=== PATIENT | female | born 1965 | race Native Hawaiian/Other Pacific Islander ===

== ENCOUNTER 2017-04-05 14:19 | Emergency (ER) | payer OTHER ==
[~2017-04-05] VITALS: Ht 175.3 cm; Wt 104.3 kg
[2017-04-05 15:20] LABS: PLATELET COUNT 245 K/uL (152-353)
[2017-04-05 15:31] LABS: POTASSIUM 3.9 mmol/L (3.6-5.2)
[2017-04-05 16:22] VITALS: BP 125/72; TEMP 98.1
== END 2017-04-05 16:30 | disposition home or self-care (01) ==
LOC: ED 14:19
PROVIDERS: Emergency Medicine
DX: N20.1 Calculus of ureter (principal); N23 Unspecified renal colic; R10.84 Generalized abdominal pain
CPT/HCPCS: 80053; 85027; 96360; 96374; 96375; 96376; 99284; J1885; J2175; J2405

== ENCOUNTER 2017-09-28 18:14 | Observation (INO) | payer OTHER ==
[~2017-09-28] VITALS: Ht 175.3 cm; Wt 107.3 kg
[2017-09-28 18:24] VITALS: BP 152/105; TEMP 98.5
[2017-09-28 19:14] LABS: PLATELET COUNT 275 K/uL (152-353)
[2017-09-28 19:30] VITALS: BP 155/89
[2017-09-28 19:43] LABS: POTASSIUM 3.6 mmol/L (3.6-5.2)
[2017-09-28 20:00] VITALS: BP 159/95; TEMP 98.7
[2017-09-29] VITALS: BP 143/70; TEMP 97.8
[2017-09-29 03:54] VITALS: BP 126/53; TEMP 97.7; Ht 175.3 cm; Wt 107.3 kg
[2017-09-29 03:59] VITALS: BP 127/69; TEMP 97.9
[2017-09-29 08:00] VITALS: BP 140/77; TEMP 98.6
[2017-09-29 08:24] LABS: PLATELET COUNT 248 K/uL (152-353)
[2017-09-29 08:35] LABS: POTASSIUM 4.1 mmol/L (3.6-5.2)
[2017-09-29] MEDS ORDERED: CIPR500T PO (11:29)
[2017-09-29] MEDS ORDERED: KETO10TA34 PO (11:29)
[2017-09-29] MEDS ORDERED: TERA2CAP3 PO (11:29)
[2017-09-29 12:00] VITALS: BP 134/69; TEMP 98
== END 2017-09-29 13:15 | disposition home or self-care (01) ==
LOC: ED 18:14 → MED/SURG 20:00
PROVIDERS: Family Medicine
DX: N13.2 Hydronephrosis with renal and ureteral calculous obstruction (principal); E11.9 Type 2 diabetes mellitus without complications; R11.2 Nausea with vomiting, unspecified
CPT/HCPCS: 36415; 80053; 81000; 85027; 96374; 96375; 96376; 99220; 99284; G0378; J0696; J1650; J1885; J2405; J2550; J3490

== ENCOUNTER 2017-11-22 09:38 | Outpatient (CLI) | payer OTHER ==
[~2017-11-22 09:38] MED LIST: CIPR500T PO; KETO10TA34 PO; TERA2CAP3 PO
[2017-11-22 10:46] LABS: PLATELET COUNT 283 K/uL (152-353)
== END 2017-11-22 19:55 | disposition home or self-care (01) ==
LOC: RAD 09:38
PROVIDERS: Nurse Practitioner
DX: R11.2 Nausea with vomiting, unspecified (principal); R05 Cough; R06.02 Shortness of breath; R53.83 Other fatigue; R50.9 Fever, unspecified
CPT/HCPCS: 36415; 80053; 85027; 87070; 87077; 87185; 87186; 87205; 87497

== ENCOUNTER 2018-10-21 12:00 | Outpatient (CLI) | payer OTHER | END 2018-10-21 12:14 | disposition short-term general hospital (02) | LOC: AMB 12:00 | DX: M25.531 Pain in right wrist (principal); M25.561 Pain in right knee; M25.551 Pain in right hip; W18.39XA Other fall on same level, initial encounter; Y92.018 Other place in single-family (private) house as the place of occurrence of the external cause | CPT/HCPCS: A0425; A0427 ==

== ENCOUNTER 2018-10-21 12:16 | Emergency (ER) | payer OTHER ==
[~2018-10-21] VITALS: Ht 175.3 cm; Wt 107.0 kg
[2018-10-21 12:24] VITALS: TEMP 97.5
[2018-10-21 13:24] VITALS: BP 136/78
== END 2018-10-21 13:25 | disposition home or self-care (01) ==
LOC: ED 12:16
DX: R52 Pain, unspecified (principal); W18.39XA Other fall on same level, initial encounter; Y93.9 Activity, unspecified; Y92.89 Other specified places as the place of occurrence of the external cause
CPT/HCPCS: 99283

== ENCOUNTER 2019-02-22 07:50 | Outpatient (CLI) | payer OTHER | END 2019-02-22 23:26 | disposition home or self-care (01) | LOC: LABW 07:50 | DX: R19.7 Diarrhea, unspecified (principal) | CPT/HCPCS: 82272; 83630; 87015; 87045; 87324; 87328; 87329; 87449; 87899 ==

== ENCOUNTER 2019-07-16 02:30 | Emergency (ER) | payer OTHER ==
[~2019-07-16] VITALS: Ht 175.3 cm; Wt 107.0 kg
[2019-07-16 03:45] VITALS: BP 133/63; TEMP 98.1
== END 2019-07-16 03:45 | disposition home or self-care (01) ==
LOC: ED 02:35
DX: M16.11 Unilateral primary osteoarthritis, right hip (principal); Z98.890 Other specified postprocedural states; W18.39XA Other fall on same level, initial encounter; Y92.89 Other specified places as the place of occurrence of the external cause
CPT/HCPCS: 96374; 99284

== ENCOUNTER 2019-09-16 09:13 | Emergency (ER) | payer OTHER ==
[~2019-09-16] VITALS: Ht 175.3 cm; Wt 107.0 kg
[2019-09-16 09:45] LABS: POTASSIUM 3.3 mmol/L (3.6-5.2); SODIUM 134 mmol/L (136-145)
[2019-09-16 09:48] LABS: PLATELET COUNT 307 K/uL (152-353)
[2019-09-16 13:15] VITALS: BP 149/89; TEMP 97.1
== END 2019-09-16 13:19 | disposition short-term general hospital (02) ==
LOC: ED 09:13
DX: R10.0 Acute abdomen (principal); K25.5 Chronic or unspecified gastric ulcer with perforation
CPT/HCPCS: 36415; 80053; 81000; 82550; 84484; 85027; 93005; 96360; 96361; 96365; 96375; 96376; 99284; J2270; J2405; J2543; Q9963

== ENCOUNTER 2020-01-23 09:05 | Outpatient (CLI) | payer OTHER | END 2020-01-23 20:24 | disposition home or self-care (01) | LOC: RESP 09:05 → MRI 10:00 → RESP 20:24 | DX: M54.16 Radiculopathy, lumbar region (principal) ==

== ENCOUNTER 2020-04-24 12:46 | Outpatient (CLI) | payer OTHER | END 2020-04-24 19:57 | disposition home or self-care (01) | LOC: MRI 12:46 | PROVIDERS: ATTEND Specialist | DX: M54.17 Radiculopathy, lumbosacral region (principal) ==

== ENCOUNTER 2020-05-31 08:22 | Outpatient (CLI) | payer OTHER | END 2020-05-31 22:56 | disposition home or self-care (01) | LOC: MRI 08:22 | PROVIDERS: ATTEND Specialist | DX: R20.2 Paresthesia of skin (principal); R20.0 Anesthesia of skin | CPT/HCPCS: 36415; 82565; 84520; A9576 ==

== ENCOUNTER 2020-06-03 11:06 | Emergency (ER) | payer OTHER ==
[~2020-06-03] VITALS: Ht 175.3 cm; Wt 92.1 kg
[2020-06-03 11:06] VITALS: TEMP 98.1
[2020-06-03 14:33] VITALS: BP 150/79
== END 2020-06-03 14:40 | disposition home or self-care (01) ==
LOC: ED 11:06
PROC: 2W3CX1Z Immobilization of Right Lower Arm using Splint (ICD-10-PCS; principal; 2020-06-03)
PROC: 0PSHXZZ Reposition Right Radius, External Approach (ICD-10-PCS; 2020-06-03)
DX: S52.531A Colles' fracture of right radius, initial encounter for closed fracture (principal); W18.39XA Other fall on same level, initial encounter; Y92.89 Other specified places as the place of occurrence of the external cause
CPT/HCPCS: 96360; 96375; 99284; J2270; J3490

== ENCOUNTER 2020-06-17 15:32 | Outpatient (CLI) | payer OTHER | END 2020-06-17 19:36 | disposition home or self-care (01) | LOC: RAD 15:32 | PROVIDERS: ATTEND Physician Assistant | DX: M25.531 Pain in right wrist (principal) ==

== ENCOUNTER 2020-06-26 10:19 | Outpatient (CLI) | payer OTHER | END 2020-06-26 19:35 | disposition home or self-care (01) | LOC: LABW 10:19 | PROVIDERS: ATTEND Specialist | DX: G45.9 Transient cerebral ischemic attack, unspecified (principal) | CPT/HCPCS: 36415; 83090; 85210; 85220; 85240; 85300; 85303; 85306; 85652; 86038; 86147 ==

== ENCOUNTER 2020-08-09 08:32 | Outpatient (CLI) | payer OTHER | END 2020-08-09 19:49 | disposition home or self-care (01) | LOC: RESP 08:32 → MRI 10:00 → RESP 19:49 | PROVIDERS: ATTEND Specialist | DX: G45.9 Transient cerebral ischemic attack, unspecified (principal) ==

== ENCOUNTER 2020-08-12 13:38 | Outpatient (CLI) | payer OTHER | END 2020-08-12 20:52 | disposition home or self-care (01) | LOC: RAD 13:38 | PROVIDERS: ATTEND Physician Assistant | DX: M54.2 Cervicalgia (principal); M25.531 Pain in right wrist ==

== ENCOUNTER 2020-09-09 06:57 | Outpatient (CLI) | payer OTHER | END 2020-09-09 21:23 | disposition home or self-care (01) | LOC: RAD 06:57 | PROVIDERS: ATTEND Physician Assistant | DX: M25.531 Pain in right wrist (principal); M54.2 Cervicalgia; M25.511 Pain in right shoulder ==

== ENCOUNTER 2020-10-18 09:06 | Outpatient (CLI) | payer OTHER | END 2020-10-18 23:59 | disposition home or self-care (01) | LOC: MRI 09:06 | PROVIDERS: ATTEND Orthopaedic Surgery | DX: M25.511 Pain in right shoulder (principal) ==

== ENCOUNTER 2020-11-07 09:34 | Outpatient (CLI) | payer OTHER | END 2020-11-07 19:44 | disposition home or self-care (01) | LOC: MRI 09:34 | PROVIDERS: ATTEND Neurological Surgery | DX: M54.16 Radiculopathy, lumbar region (principal) ==

== ENCOUNTER 2021-02-12 07:47 | Emergency (ER) | payer OTHER ==
[~2021-02-12] VITALS: Ht 175.3 cm; Wt 96.2 kg
[2021-02-12 07:58] VITALS: TEMP 97.8
[2021-02-12 08:26] LABS: PLATELET COUNT 217 K/uL (152-353)
[2021-02-12 10:00] VITALS: BP 112/68
== END 2021-02-12 10:22 | disposition home or self-care (01) ==
LOC: ED 07:47
PROVIDERS: Emergency Medicine Emergency Medical Services
DX: N20.2 Calculus of kidney with calculus of ureter (principal); Z87.442 Personal history of urinary calculi
CPT/HCPCS: 36415; 80053; 81000; 85027; 96360; 96374; 96375; 99284; J1885; J2270; J2405

== ENCOUNTER 2021-05-27 08:55 | Outpatient (CLI) | payer OTHER | END 2021-05-27 18:57 | disposition home or self-care (01) | LOC: MRI 08:55 | PROVIDERS: ATTEND Neurological Surgery | DX: M54.16 Radiculopathy, lumbar region (principal) | CPT/HCPCS: 36415; 82565; 84520; A9576 ==

== ENCOUNTER 2021-07-14 13:48 | Outpatient (CLI) | payer OTHER | END 2021-07-14 20:12 | disposition home or self-care (01) | LOC: RAD 13:48 | PROVIDERS: ATTEND Physician Assistant | DX: M25.562 Pain in left knee (principal) ==

== ENCOUNTER 2021-07-22 12:32 | Outpatient (CLI) | payer OTHER | END 2021-07-22 19:12 | disposition home or self-care (01) | LOC: MAMMO 12:32 | PROVIDERS: ATTEND Internal Medicine | DX: Z12.31 Encounter for screening mammogram for malignant neoplasm of breast (principal) ==

== ENCOUNTER 2021-10-07 12:56 | Outpatient (CLI) | payer OTHER | END 2021-10-07 18:53 | disposition home or self-care (01) | LOC: RAD 12:56 | PROVIDERS: ATTEND Orthopaedic Surgery | DX: M25.511 Pain in right shoulder (principal) ==

== ENCOUNTER 2021-11-27 17:06 | Emergency (ER) | payer OTHER ==
[~2021-11-27] VITALS: Ht 175.3 cm; Wt 98.9 kg
[2021-11-27 17:45] LABS: PLATELET COUNT 252 K/uL (152-353)
[2021-11-27 17:58] LABS: POTASSIUM 4.6 mmol/L (3.6-5.2)
[2021-11-27 19:42] VITALS: BP 160/74; TEMP 98.2
== END 2021-11-27 19:42 | disposition home or self-care (01) ==
LOC: ED 17:06
PROVIDERS: Emergency Medicine
DX: N13.2 Hydronephrosis with renal and ureteral calculous obstruction (principal); Z87.442 Personal history of urinary calculi
CPT/HCPCS: 80053; 81002; 85027; 96360; 96374; 96375; 99284; J2270; J2405

== ENCOUNTER 2022-04-22 12:09 | Outpatient (CLI) | payer OTHER | END 2022-04-22 20:14 | disposition home or self-care (01) | LOC: RAD 12:09 | PROVIDERS: ATTEND Physician Assistant | DX: M54.59 Other low back pain (principal) ==

== ENCOUNTER 2022-07-08 12:52 | Emergency (ER) | payer OTHER ==
[~2022-07-08] VITALS: Ht 175.3 cm; Wt 102.5 kg
[2022-07-08 13:00] VITALS: BP 140/62; TEMP 97.8
[2022-07-08 14:05] LABS: POTASSIUM 4.2 mmol/L (3.6-5.2)
[2022-07-08 14:11] LABS: PLATELET COUNT 270 K/uL (152-353)
== END 2022-07-08 18:24 | disposition home or self-care (01) ==
LOC: ED 12:52
PROVIDERS: Emergency Medicine
DX: R10.11 Right upper quadrant pain (principal)
CPT/HCPCS: 36415; 80053; 81002; 83690; 85027; 85379; 93005; 96361; 96374; 96375; 99284; J1885; J2405; Q9963

== ENCOUNTER 2022-11-09 13:45 | Outpatient (CLI) | payer OTHER | END 2022-11-09 20:50 | disposition home or self-care (01) | LOC: RAD 13:45 | PROVIDERS: ATTEND Physician Assistant | DX: M25.562 Pain in left knee (principal) ==

== ENCOUNTER 2023-02-15 08:45 | Outpatient (CLI) | payer OTHER | END 2023-02-15 19:13 | disposition home or self-care (01) | LOC: RAD 08:45 | PROVIDERS: ATTEND Internal Medicine | DX: Z01.818 Encounter for other preprocedural examination (principal) ==